=== PATIENT | female | born 1970 | race Hispanic/Latino ===

== ENCOUNTER 2018-05-14 19:47 | Inpatient (IN) | payer MEDICARE, OTHER ==
[~2018-05-14] VITALS: Ht 160 cm; Wt 97.9 kg
[~2018-05-14 19:47] MED LIST: AEC81 PO; ALLO100T PO; ATOR40TA69 PO; BISA5TAB12 PO; CARV6.25 PO; GABA-531 PO; GEMF600T4 PO; LOSA100T20 PO; PRED20TA3 PO; SITA25TA5 PO; SODI650T PO
[2018-05-14 20:45] LABS: BASOPHILS % (AUTO) 1.1 % (0.0-5.0); HEMATOCRIT 32.2 % (36-48); LYMPHOCYTES % (AUTO) 12.8 % (21.0-51.0); MEAN CORPUSCULAR HEMOGLOBIN 32.2 pg (27.0-33.0); MEAN CORPUSCULAR HGB CONC 32.7 g/dL (32.0-36.0); MEAN CORPUSCULAR VOLUME 98.3 fL (79-99); MONOCYTES % (AUTO) 6.8 % (3.0-13.0); NEUTROPHILS % (AUTO) 76.3 % (40.0-77.0); PLATELET COUNT (AUTO) 252 K/uL (130-400); RED BLOOD CELL COUNT(AUTO) 3.27 MIL/uL (4.00-5.50); WHITE BLOOD COUNT (AUTO) 8.2 K/uL (4.8-10.8)
[2018-05-14 20:54] LABS: CREATININE 5.4 mg/dL (0.5-1.5); POTASSIUM 4.4 mmol/L (3.5-5.1)
[2018-05-14 20:58] LABS: INR 0.99 (0.85-1.15); PARTIAL THROMBOPLASTIN TIME 32.6 SEC (26.3-35.5); PROTHROMBIN TIME 10.4 SEC (9.6-11.6)
[2018-05-14 21:05] LABS: BILIRUBIN,TOTAL 0.3 mg/dL (0.2-1.0); TOTAL PROTEIN, SERUM 7.4 g/dL (6.0-8.3)
[2018-05-14 21:44] LABS: PHOSPHORUS 6.2 mg/dL (2.5-4.9)
[2018-05-14 22:52] LABS: APPEARANCE,URINE Clear (CLEAR); BILIRUBIN,URINE Negative (NEGATIVE); COLOR,URINE Yellow (YELLOW); GLUCOSE, URINE (UA) Negative (NEGATIVE); KETONES,URINE Negative (NEGATIVE); LEUKOCYTE ESTERASE ,URINE Trace (NEGATIVE); NITRATE,URINE Negative (NEGATIVE); OCCULT BLOOD,URINE Trace (NEGATIVE); PH,URINE 5.5 (5.0-8.0); PROTEIN,URINE 300 (NEGATIVE); UROBILINOGEN,URINE 0.2 mg/dL (0.2-1.0)
[2018-05-14] MEDS ORDERED: CALCIUM GLUCONATE 1 GM/10 ML VIAL IV ONE (22:57)
[2018-05-14 22:58] LABS: BACTERIA,URINE None Seen /HPF (None Seen); RBC,URINE 0-1 /HPF (0-1); SQUAMOUS EPITHELIAL CELL,UR Rare /HPF (0-2)
[2018-05-14 22:59] LABS: AMPHET/METH SCREEN,URINE NEGATIVE (NEGATIVE); BARBITURATE SCREEN, URINE NEGATIVE (NEGATIVE); BENZODIAZEPINES SCREEN,URINE NEGATIVE (NEGATIVE); CANNABINOID SCREEN,URINE NEGATIVE (NEGATIVE); COCAINE SCREEN,URINE NEGATIVE (NEGATIVE); OPIATE SCREEN,URINE NEGATIVE (NEGATIVE); PHENCYCLIDINE SCREEN,URINE NEGATIVE (NEGATIVE)
[2018-05-14] MEDS ORDERED: SODIUM CHLORIDE 0.9% 100 ML IV ONE ×2 (23:01)
[2018-05-14] MEDS ORDERED: DEXTROSE 50%-WATER 50 ML DISP.SYRIN IV PRN (23:45)
[2018-05-14] MEDS ORDERED: PHARMACY COMMUNICATION MISC SCH (23:45)
[2018-05-14] MEDS ORDERED: GLUCAGON 1MG KIT 1 MG ML IM PRN (23:45)
[2018-05-15] VITALS (7 sets, daily range): BP systolic 116–158; BP diastolic 57–75
[2018-05-15] MEDS ORDERED: FLUT16H NS (01:23)
[2018-05-15] MEDS ORDERED: FURO40TA5 PO (01:23)
[2018-05-15] MEDS ORDERED: ONDA8TAB11 PO (01:23)
[2018-05-15] MEDS ORDERED: ATOR40TA69 PO (01:23)
[2018-05-15] MEDS ORDERED: ESCI10TA54 PO (01:23)
[2018-05-15] MEDS ORDERED: FERR270T PO (01:23)
[2018-05-15] MEDS ORDERED: KBU PO (01:23)
[2018-05-15] MEDS ORDERED: CLOP75TA32 PO (01:23)
[2018-05-15] MEDS ORDERED: CHOL400T14 PO (01:23)
[2018-05-15] MEDS ORDERED: PIOG15TA66 PO (01:23)
[2018-05-15] MEDS ORDERED: CYAN100022 SL (01:23)
[2018-05-15] MEDS ORDERED: SUCR1TAB2 PO (01:23)
[2018-05-15] MEDS ORDERED: PROC-13 PO (01:23)
[2018-05-15] MEDS ORDERED: AMLO5TAB7 PO (01:23)
[2018-05-15] MEDS ORDERED: NITR0.4T50 SL (01:23)
[2018-05-15] MEDS ORDERED: INSU100I24 SQ (01:32)
[2018-05-15 05:55] LABS: HEMATOCRIT 29.4 % (36-48); MEAN CORPUSCULAR HGB CONC 33.8 g/dL (32.0-36.0); MEAN CORPUSCULAR VOLUME 97.6 fL (79-99); PLATELET COUNT (AUTO) 254 K/uL (130-400); RED BLOOD CELL COUNT(AUTO) 3.01 MIL/uL (4.00-5.50); RED CELL DISTRIBUTION WIDTH 13.6 % (11.0-15.5); WHITE BLOOD COUNT (AUTO) 7.4 K/uL (4.8-10.8)
[2018-05-15 06:14] LABS: CREATININE 5.3 mg/dL (0.5-1.5); MAGNESIUM 1.8 mg/dL (1.80-2.40)
[2018-05-15] MEDS: INSULIN R PO SS1 SQ SCH ×4 (06:26→20:49)
[2018-05-15] MEDS ORDERED: ONDANSETRON HCL 4 MG/2 ML VIAL ONE (07:41)
[2018-05-15] MEDS ORDERED: ASPIRIN 81 MG EC TAB PO SCH (09:00)
[2018-05-15] MEDS ORDERED: METOPROLOL TARTRATE 25 MG TAB PO SCH (09:00)
[2018-05-15] MEDS ORDERED: BISACODYL 5 MG TABLET.DR PO PRN (14:45)
[2018-05-15] MEDS ORDERED: NITROGLYCERIN 0.4 MG SL TAB SL PRN (14:45)
[2018-05-15] MEDS ORDERED: ONDANSETRON 4 MG TABLET PO PRN (14:45)
[2018-05-15] MEDS: CLOPIDOGREL BISULFATE 75 MG TAB PO SCH (18:10)
[2018-05-15] MEDS: SUCRALFATE 1 GM TABLET PO SCH (18:10)
[2018-05-15] MEDS: SODIUM BICARBONATE 650 MG TAB PO SCH (20:37)
[2018-05-15] MEDS: GABAPENTIN 300 MG CAPSULE PO SCH (20:37)
[2018-05-15] MEDS: GEMFIBROZIL 600 MG TABLET PO SCH (20:37)
[2018-05-15] MEDS: CARVEDILOL 6.25 MG TABLET PO SCH (20:38)
[2018-05-15] MEDS ORDERED: ATORVASTATIN CALCIUM 40 MG TABLET PO SCH (21:00)
[2018-05-16 03:48] VITALS: BP 121/54
[2018-05-16 03:58] LABS: ALBUMIN 2.2 g/dL (3.5-5.0); BILIRUBIN,TOTAL 0.3 mg/dL (0.2-1.0); CREATININE 5.3 mg/dL (0.5-1.5); MAGNESIUM 1.7 mg/dL (1.80-2.40); POTASSIUM 4.3 mmol/L (3.5-5.1); TOTAL PROTEIN, SERUM 5.9 g/dL (6.0-8.3)
[2018-05-16] MEDS: SUCRALFATE 1 GM TABLET PO SCH ×2 (06:36→11:42)
[2018-05-16] MEDS: INSULIN R PO SS1 SQ SCH ×2 (06:48→11:30)
[2018-05-16 07:45] VITALS: BP 148/71
[2018-05-16] MEDS ORDERED: ASPIRIN 81 MG EC TAB PO SCH (09:00)
[2018-05-16] MEDS ORDERED: ALLOPURINOL 100 MG TABLET PO SCH (09:00)
[2018-05-16] MEDS ORDERED: PREDNISONE 20 MG TABLET PO SCH (09:00)
[2018-05-16] MEDS ORDERED: CYANOCOBALAMIN (VITAMIN B-12) 1,000 MCG TABLET PO SCH (09:00)
[2018-05-16] MEDS ORDERED: Escitalopram Oxalate 10 MG PO SCH (09:00)
[2018-05-16] MEDS ORDERED: FLUTICASONE PROPIONATE 50MCG/SPRAY 16 GM BOTTLE NS SCH (09:00)
[2018-05-16] MEDS ORDERED: INSULIN DEGLUDEC 10 UNIT PO SCH (09:00)
[2018-05-16] MEDS ORDERED: FERROUS GLUCONATE 27 MG PO SCH (09:00)
[2018-05-16] MEDS ORDERED: AMLODIPINE BESYLATE 5 MG TAB PO SCH (09:00)
[2018-05-16] MEDS: CLOPIDOGREL BISULFATE 75 MG TAB PO SCH (09:22)
[2018-05-16] MEDS: GABAPENTIN 300 MG CAPSULE PO SCH ×2 (09:22→14:35)
[2018-05-16] MEDS: SODIUM BICARBONATE 650 MG TAB PO SCH (09:22)
[2018-05-16] MEDS: GEMFIBROZIL 600 MG TABLET PO SCH (09:22)
[2018-05-16] MEDS: CARVEDILOL 6.25 MG TABLET PO SCH (09:24)
[2018-05-16] MEDS ORDERED: MAGNESIUM 2GM PREMIX 50ML 50 ML IV SCH (10:30)
[2018-05-16 11:27] VITALS: BP 132/71
[2018-05-16] MEDS ORDERED: PHARMACY COMMUNICATION MISC SCH (13:15)
[2018-05-16] MEDS ORDERED: CALCIUM GLUCONATE 2 GM in SODIUM CHLORIDE 0.9% 50 ML IV SCH (13:30)
[2018-05-16] MEDS ORDERED: CALCIUM CARBONATE 500 MG/5 ML ML PO SCH (17:00)
== END 2018-05-16 17:42 | disposition home or self-care (01) | DRG 65 ==
LOC: EDH 19:47 → EDHIP 22:43 → 2AH 05-15 00:05
PROVIDERS: ADMIT Internal Medicine Infectious Disease; ATTEND Internal Medicine Infectious Disease
DX: I63.9 Cerebral infarction, unspecified (principal); I69.354 Hemiplegia and hemiparesis following cerebral infarction affecting left non-dominant side; N17.9 Acute kidney failure, unspecified; I12.0 Hypertensive chronic kidney disease with stage 5 chronic kidney disease or end stage renal disease; N18.5 Chronic kidney disease, stage 5; E11.22 Type 2 diabetes mellitus with diabetic chronic kidney disease; E83.51 Hypocalcemia; E11.21 Type 2 diabetes mellitus with diabetic nephropathy; E66.01 Morbid (severe) obesity due to excess calories; E11.319 Type 2 diabetes mellitus with unspecified diabetic retinopathy without macular edema; E78.5 Hyperlipidemia, unspecified; E83.42 Hypomagnesemia; E87.6 Hypokalemia; R53.81 Other malaise; D63.1 Anemia in chronic kidney disease; Z68.38 Body mass index [BMI] 38.0-38.9, adult; Z88.5 Allergy status to narcotic agent; Z91.018 Allergy to other foods; Z83.3 Family history of diabetes mellitus; Z82.49 Family history of ischemic heart disease and other diseases of the circulatory system
CPT/HCPCS: 36415; 70450; 70551; 71045; 76770; 80048; 80053; 80061; 80305; 81001; 82306; 82330; 82550; 82948; 83735; 83874; 84100; 84484; 85025; 85027; 85610; 85730; 92507; 92522; 92610; 93005; 99291; J0610; J1815; J2405; J3475

== ENCOUNTER 2018-08-31 19:22 | Emergency (ER) | payer OTHER ==
[~2018-08-31 19:22] MED LIST changes: +AMLO5TAB9 PO; +CHOL400T14 PO; +CLOP75TA32 PO; +CYAN100022 SL; +ESCI10TA54 PO; +FERR270T PO; +FLUT16H NS; +FURO40TA5 PO; -GEMF600T4 PO; +GEMF600T5 PO; +INSU100I24 SQ; -LOSA100T20 PO; +LOSA100T58 PO; +NITR0.4T50 SL; +ONDA8TAB11 PO; +PIOG15TA66 PO; +PROC-13 PO; +SUCR1TAB2 PO
[2018-08-31 20:04] LABS: APPEARANCE,URINE CLOUDY (CLEAR); BILIRUBIN,URINE NEGATIVE (NEGATIVE); COLOR,URINE YELLOW (YELLOW); GLUCOSE, URINE (UA) 250 mg/dL (NEGATIVE); KETONES,URINE 5 mg/dL (NEGATIVE); LEUKOCYTE ESTERASE ,URINE SMALL (NEGATIVE); NITRATE,URINE NEGATIVE (NEGATIVE); OCCULT BLOOD,URINE SMALL (NEGATIVE); PROTEIN,URINE >=300 (NEGATIVE); UROBILINOGEN,URINE 0.2 mg/dL (0.2-1.0)
[2018-08-31] MEDS ORDERED: ACETAMINOPHEN-CODEINE 300/30MG TAB ONE (20:24)
[2018-08-31 20:26] LABS: RBC,URINE None Seen /HPF (0-1)
[2018-08-31 20:27] LABS: AMORPHOUS SEDIMENT,UR Few /LPF (None Seen); BACTERIA,URINE Many /HPF (None Seen)
[2018-08-31 20:35] LABS: EOSINOPHILS % (AUTO) 3.5 % (0.0-8.0); HEMATOCRIT 33.7 % (36-48); LYMPHOCYTES % (AUTO) 15.4 % (21.0-51.0); MEAN CORPUSCULAR HEMOGLOBIN 32.4 pg (27.0-33.0); MEAN CORPUSCULAR HGB CONC 33.6 g/dL (32.0-36.0); MEAN CORPUSCULAR VOLUME 96.5 fL (79-99); MONOCYTES % (AUTO) 6.1 % (3.0-13.0); PLATELET COUNT (AUTO) 287 K/uL (130-400); RED BLOOD CELL COUNT(AUTO) 3.49 MIL/uL (4.00-5.50); RED CELL DISTRIBUTION WIDTH 13.8 % (11.0-15.5); WHITE BLOOD COUNT (AUTO) 8.3 K/uL (4.8-10.8)
[2018-08-31 20:57] LABS: ALBUMIN 2.7 g/dL (3.5-5.0); BILIRUBIN,TOTAL 0.4 mg/dL (0.2-1.0); CREATININE 7.1 mg/dL (0.5-1.5); TOTAL PROTEIN, SERUM 6.7 g/dL (6.0-8.3)
[2018-08-31] MEDS ORDERED: POTASSIUM CHLORIDE 10% ELIXIR 20 MEQ/15 ML UDCUP ONE (21:18)
[2018-08-31] MEDS ORDERED: CEPHALEXIN 500 MG CAPSULE ONE (21:19)
== END 2018-08-31 21:45 | disposition home or self-care (01) ==
LOC: EDH 19:22
DX: N39.0 Urinary tract infection, site not specified (principal); M54.5 Low back pain; E87.6 Hypokalemia; K59.00 Constipation, unspecified; F32.9 Major depressive disorder, single episode, unspecified; E11.9 Type 2 diabetes mellitus without complications; I10 Essential (primary) hypertension; E78.5 Hyperlipidemia, unspecified; Z90.49 Acquired absence of other specified parts of digestive tract; Z86.73 Personal history of transient ischemic attack (TIA), and cerebral infarction without residual deficits; Z90.710 Acquired absence of both cervix and uterus; Z88.5 Allergy status to narcotic agent; Z91.018 Allergy to other foods
CPT/HCPCS: 36415; 74176; 80053; 81001; 85025